=== PATIENT | female | born 1935 | race Caucasian/White ===

== ENCOUNTER → 2016-05-04 | Day surgery (SDC) | payer MEDICARE ==
[2016-04-28 13:40] VITALS: BMI 29.2
--- NOTE | 2016-05-03 10:50 | SC.ANESEVA ---
Anesthesia Eval & Plan ([facility]) - Providers Stated Procedure: Left Eye Surgeon:: Domenica Jack - Medications/Allergies Allergies: Allergies latex Allergy (Mild, Verified 04/28/16 13:26) Rash-Generalized NSAIDS (Non-Steroidal Anti-Inflamma Allergy (Mild, Verified 11/21/15 23:12) Bleeding cefadroxil hydrate [From Duricef] Allergy (Verified 04/28/16 13:26) Itching oxycodone [Oxycodone] Allergy (Verified 04/28/16 13:26) Itching Home Medications: Home Medication List Calc[place] 500 mg PO DAILY 04/28/16 [History] Current Medication List: Reviewed - Focused Physical Exam NPO since: Since after Midnight Mallampati: Class II Thyromental Distance: Greater than 3 Neck: Full Range of Motion Dental: Normal - no significant findings Cardiovascular/Chest: Normal (RRR no mumurs or rubs.) Respiratory: Lungs clear. negative: Wheezing Any problems with anesthesia, including nausea and vomiting?: No Any relatives with a history of Malignant Hyperthermia?: No Other: Diagnoses AGE-RELATED NUCLEAR CATARACT, LEFT EYE (05/04/16) Problem List Problem Status Onset Gastroesophageal reflux disease Acute Hematochezia Acute History of colon cancer Acute CRI (chronic renal insufficiency) Chronic Diabetes mellitus Chronic Hypertension Chronic Allergies Allergy/AdvReac Type Severity Reaction Status Date / Time latex Allergy Mild Rash-Genera Verified 04/28/16 13:26 lized NSAIDS (Non-Steroidal Allergy Mild Bleeding Verified 11/21/15 23:12 Anti-Inflamma cefadroxil hydrate Allergy Itching Verified 04/28/16 13:26 [From Duricef] oxycodone [Oxycodone] Allergy Itching Verified 04/28/16 13:26 Home Medications Medication Instructions Recorded Last Taken Type Cholecalciferol (Vitamin D3) 2,000 unit PO DAILY 11/01/12 01/26/15 08:00 History [Vitamin D3 (cholecalciferol)] Cranberry 2 tab PO BID 11/01/12 01/26/15 08:00 History Fenofibrate 160 mg PO DAILY 11/01/12 01/26/15 08:00 History Glimepiride [Amaryl] 2 mg PO BID 11/01/12 01/26/15 20:00 History Omeprazole [Prilosec] 20 - 40 mg PO DAILY 11/01/12 01/26/15 07:00 History Acetaminophen [Tylenol 8 650 mg PO Q8H PRN 07/27/14 01/23/15 History Hour/Tylenol Arthritis] Colesevelam HCl [Welchol] 6 tab PO DAILY 07/27/14 01/26/15 20:00 History Glucosamine/D3/Boswellia Jessie 2 each PO DAILY 11/30/14 01/26/15 11:00 History [Osteo Bi-Flex Caplet] Levothyroxine [Synthroid, Levoxyl] 25 mcg PO DAILY 11/30/14 01/26/15 10:00 History [place]-3 Fatty Acids/Fish Oil [Fish 3 each PO DAILY 11/30/14 01/26/15 20:00 History Oil 1,000 mg Capsule] PEG-Electrolytes (Miralax) 17 gm PO DAILY #1 each 11/30/14 01/26/15 04:00 Rx [Miralax] Sitagliptin Phosphate [Januvia] 100 mg PO DAILY 11/30/14 01/26/15 21:00 History Valsartan [Diovan] 320 mg PO DAILY 11/30/14 01/27/15 05:00 History Wheat Dextrin [Benefiber] 2 tsp PO DAILY 01/27/15 01/26/15 04:00 History Calcio [place] 500 mg PO DAILY 04/28/16 Unknown History Height and Weight Patient's height 5 ft 2 in Patient's weight 72.7 kg Weight (Calculated Kilograms) 72.700 BMI 29.2 - Anesthetic Plan Anesthesia Type: MAC ASA Class: 3 - Focused Review of Systems Cardiac History: Yes: Hx Hypertension, Hx Cardiac Disorders, Hx Abnormal Cholesterol/Hyperlipidemia HEENT: Yes: Cataracts (MILD), Hx Dysphagia (DIFFICULTY SWALLOWING PILLS), Hx Vision Problem (READING), Other HEENT Problems Respiratory: Gastrointestinal: Yes: Hx Gastroesophageal Reflux Disease, Hx Gastrointestinal Disorders, Hx Diverticulosis, Hx Colonoscopy, Hx Endoscopy Neurological/Musculoskeletal: No: Hx Neurological Disorders Endocrine: Yes: Hx Non-Insulin Dependent Diabetes, Hx Hypothyroidism Blood/Autoimmune: Yes: Hx Blood Transfusions, Hx Anemia No: Hx AIDS, Hx Hepatitis (type) Smoking Status: Never smoker Past Social History: Denies: Substance Use Disorder Surgical History: Yes: Appendectomy, Cholecystectomy, Bladder Tact, Back ( KYPHOPLASTY), Other (Partial colectomy 5 and half years ago; EGD and colonoscopy 3 days ago.) Other Surgical History: COLECTOMY WITH LYMPH NODE REMOVAL FOR COLON CANCER BTL CYSTOSCOPY hemorrhoids, colon resection left wrist foot surgery 1989 & 1992
[~2016-05-04] MED LIST: BSS 500 ml-Vancomycin 10 mg-Phenylephrine 1 mg Irrigation IR ONE; CHONDROITIN SULFATE 0.5 ML/PFS INTRAOC ONE; DEXAMETHASONE 4 MG/ML VIAL IV PRN; DIAZEPAM 5 MG TAB PO PRN; FENTANYL 100 MCG/2 ML VIAL ONE; Hyaluronate Sodium (Provisc) 5.5 mg/0.55 ml syringe INTRAOC ONE; LABETALOL 20 MG/4 ML SYRINGE IV PRN; MIDAZOLAM 2 MG/2 ML VIAL ONE; ONDANSETRON HCL 4 MG/2 ML VIAL IV PRN; PHENYLEPHRINE 2.5% OPHTH SOLN 2 ML BOT OP EYE ONE; SCOPOLAMINE TRANSDERMAL PATCH TOP ONE; TETRACAINE 0.5% 2 ML OPHTH SOLN OS ONE; TETRACAINE 0.5% 4 ML OPHTH SOLN OP EYE ONE; TETRACAINE 0.5% 4 ML OPHTH SOLN OP EYE PRN; TROPICAMIDE 1% OPHTH SOLN 2 ML BOTTLE OP EYE ONE; Vancomycin 10 MG, Phenylephrine 1,000 MCG in Balanced Salt Solution 500 ML IO ONE; hydrALAZINE 20 MG/ML VIAL IV PRN
[2016-05-04 07:05] VITALS: TEMP 97.3
--- NOTE | 2016-05-04 08:16 | HIMOPRPT ---
DATE OF PROCEDURE: 05/04/16 PREOPERATIVE DIAGNOSIS: Cataract left eye. POSTOPERATIVE DIAGNOSIS: Cataract left eye. PROCEDURE: Cataract extraction by phacoemulsification of the left eye SURGEON: Domenica Jack MD. ANESTHESIA: IV Sedation/Topical. COMPLICATIONS: None. PRE-OPERATIVE EVALUATION: The patient has been examined and deemed medically stable for cataract extraction with no apparent need for inpatient observation; outpatient setting is appropriate. Patient appears to be oriented to time, place and person. PROCEDURE IN DETAIL: The correct eye confirmed by patient, doctor, staff and paperwork. The operative eye was then marked by the doctor in the preoperative area. Eye drops were instilled into the operative eye to dilate the pupil. The patient was transported to the operating room and was placed in the supine position. A time out was performed before the beginning of the procedure. The operative eye was prepped and draped in the usual sterile fashion for ophthalmic surgery, taking care to isolate the lashes from the surgical field. Topical anesthetic drops were instilled into the operative eye. A lid speculum was placed. Betadine 5% was instilled in the operative eye for antiseptic. Microscope was brought into place for use throughout the case. The eye was inspected. A paracentesis incision was created with a side port knife. The temporal limbal corneal incision was performed with a pineda blade. Viscoelastic was injected into the anterior chamber. Capsule forceps were used to create a capsulorhexis. Hydrodissection was performed with BSS. The nucleus was removed by phacoemulsification. Phaco time is noted below. The remaining cortical material was removed by I&A. The capsular bag was noted to be intact and distended with viscoelastic. The Intraocular lens was placed into the intact bag and centered without difficulty. The remaining viscoelastic was removed by I&A. Betadine 5% drops were placed to inspect wound and for antisepsis. Inspection revealed watertight wounds. The lid speculum was removed. Postoperative medications were instilled into the eye and a shield secured over the operative eye. IOL Type [id number] SN [id number] IOL Power 20.5 CDE 5.04 Discharge Summary: There were no complications and the patient was taken to the postoperative area in good condition. Postoperative instructions and outpatient follow up time were given.
[2016-05-04 08:22] VITALS: BP 158/73; PULSE 69
--- NOTE | 2016-05-04 08:46 | SC.ANESPOS ---
Post-Anesthesia Note LOC: Fully Awake Post-Anesthesia Assessment: Awake, Returned to Baseline, Hemodynamically Stable , Pain Control Adequate Phase I & II Recovery Complete: Yes Apparent Anesthesia Complication: No : N - Vital Signs Blood Pressure: 158/73 Pulse: 69 Resp Rate: 18 O2 Sat: 97 Temp: 97.3 F
== END ==
LOC: CPSC 06:13
PROVIDERS: ATTEND Ophthalmology
PROC: 08RK3JZ Replacement of Left Lens with Synthetic Substitute, Percutaneous Approach (ICD-10-PCS; principal; 2016-05-04 08:00)
DX: H25.12 Age-related nuclear cataract, left eye (principal); I10 Essential (primary) hypertension; E11.9 Type 2 diabetes mellitus without complications; E03.9 Hypothyroidism, unspecified; E78.5 Hyperlipidemia, unspecified; K21.9 Gastro-esophageal reflux disease without esophagitis; M19.90 Unspecified osteoarthritis, unspecified site; Z79.84 Long term (current) use of oral hypoglycemic drugs; Z79.899 Other long term (current) drug therapy; Z85.038 Personal history of other malignant neoplasm of large intestine
CPT/HCPCS: 66984; 82962; A9270; J2250; J3010; V2632; J3490